=== PATIENT | male | born 1970 | race Caucasian/White ===

== ENCOUNTER → 2023-04-17 | Outpatient (CLI) | payer BC ==
--- NOTE | 2023-04-17 09:02 | MR ---
EXAMINATION TYPE: MR elbow LT wo con DATE OF EXAM: 04/17/2023 COMPARISON: Radiograph 03/14/2022 HISTORY: 53-year-old male M25.522, Left elbow pain x 4 years, history of lifting injury. TECHNIQUE: Multiplanar, multisequence images of the left elbow were obtained without IV contrast. FINDINGS: There is deficiency of tissue at the expected site of the humeral attachment of the radial collateral ligament. Prominent heterogeneity and poor delineation of soft tissue at the expected humeral attach ment of the lateral ulnar collateral ligament as well. Tear here extends into the distal aspect of the common extensor tendon origin. There is some thickening and inhomogeneous signal with tiny interstitial tears at the common flexor t endon origin. The underlying UCL appears intact. The radiocapitellar and ulnotrochlear joints appear intact. There appears to be some possible mild sp urring at the coronoid process of the ulnar trochlear joint. Small joint effusion, likely physiologic . The distal biceps tendon and triceps insertion appear intact. The median neurovascular bundle appears satisfactory. The ulnar nerve within the sulcus on there is t hickened up to 20.5 sq mm. No acute or healing fracture or abnormal marrow edema/marrow replacement. No other significant soft tissue abnormality is seen. IMPRESSION: 1. Deficiency of fibers suggesting tear of the RCL at the humeral attachment. At least partial tear a t the humeral attachment of the lateral ulnar collateral ligament as well. 2. Tear extends into the adjacent distal fibers of the common extensor tendon origin. 3. Additional tendinosis of the common flexor tendon origin plates on interstitial tears. 4. Some thickening of the ulnar nerve prior to the cubital tunnel. Correlate for any symptoms of ulna r neuropathy.
== END | disposition home or self-care (01) ==
LOC: RADMRIMAIN 06:17
PROVIDERS: ATTEND Orthopaedic Surgery Hand Surgery
DX: M67.824 Other specified disorders of tendon, left elbow (principal); S53.442A Ulnar collateral ligament sprain of left elbow, initial encounter; X58.XXXA Exposure to other specified factors, initial encounter

== ENCOUNTER → 2023-12-18 | Outpatient (CLI) | payer BC ==
--- NOTE | 2023-12-18 10:34 | CT ---
EXAMINATION TYPE: CT abdomen pelvis wo con DATE OF EXAM: 12/18/2023 COMPARISON: None INDICATION: bright and dark red stool, abdominal pain and pelvic swelling for 3 days DLP: 1018 mGycm, Automated exposure control for dose reduction was used. CONTRAST: 0 mL of Isovue 300. Study performed without Oral Contrast TECHNIQUE: Axial images were obtained from above the diaphragm to the pubic rami in the axial plane a t 5 mm thick sections. Reconstructed images are reviewed on the computer in the coronal plane. Artif act is present on the exam and reconstructed images just anterior to the spinal column. This causes s ome limitation. FINDINGS: Limited CT sections are obtained the lung bases. The lung bases are clear. CT ABDOMEN: Liver: Normal Spleen: Normal small splenule is anterior to the splenic hilum. Pancreas: Normal Adrenal glands: The adrenal glands are normal. Gallbladder: Normal Kidneys: No masses are evident. No hydronephrosis is present. There is a 2.3 cm cyst inferior pole right kidney. No renal stones are identified. Aorta: Normal Inferior vena cava: Normal. CT PELVIS: There is a calcification in the anterior right hemipelvis measuring 2.1 cm. This appears t o lie above the urinary bladder and is of uncertain etiology. Small amount of free fluid is within th e pelvis which is abnormal in a male. Minimal wall thickening of the sigmoid colon is not excluded. Significant adjacent inflammatory nye es not identified. Minimal sigmoid colitis could be considered potentially within the differential Th is study is without oral contrast limiting bowel evaluation. Appendix: Normal as visualized. Urinary bladder: Decompressed limiting evaluation. Genitourinary structures: Prostate is poorly visualized due to the artifact. Osseous structures: No suspicious lytic or sclerotic lesions. IMPRESSION: 1. Small amount of free fluid within the pelvis. There is a calcification in the right hemipelvis of uncertain etiology. Consider bladder diverticulum with calcification. This may be within the pelvis outside the urinary bladder. Consider sigmoid diverticulum within the differential. 2. Minimal colitis within the mid to distal sigmoid colon could be considered potentially within the differential. 3. Right renal cyst.
== END | disposition home or self-care (01) ==
LOC: RADCTMAIN 09:26
PROVIDERS: ATTEND Family Medicine
DX: N28.1 Cyst of kidney, acquired (principal); K52.9 Noninfective gastroenteritis and colitis, unspecified; M61.48 Other calcification of muscle, other site; R19.00 Intra-abdominal and pelvic swelling, mass and lump, unspecified site
CPT/HCPCS: 74176

== ENCOUNTER → 2024-08-12 | Outpatient (CLI) | payer BC ==
--- NOTE | 2024-08-12 12:43 | CA ---
Stress Echo Report Rajinder Dallas Age: 54 Gender: M : 1970 Exam Date: 08/12/2024 10:21 Exam Location: [facility] Ht (in): 72 Wt (lb): 230 Ordering Physician: Roland Rios MD Referring Physician: Roland Rios MD Global Logistics Manager: PREETHI, Technologist Procedure CPT: Indication: R07.9 CHEST PAIN ICD-9 Codes: Rhythm: Patient History: Chest pain, vertigo, palpitations and shortness of breath Cardiac Medications: Medications in past 24 hours: Contrast: Stress Results Protocol: Sriram Total dose(mL): Exercise Duration (min:sec): 9:[address] Depression (mm): Angina Score: Guzman Score: METS: 11.1 Resting HR: 68 Resting BP: 124 / 71 Peak HR: 152 Peak BP: 149 / 76 Max Predicted HR: 167 91 % Max Predicted HR Target HR: 142 Double Product: [id number] Stress Summary: The patient's target heart rate was achieved BP Response: Reason for Termination: Reached target heart rate or work-load Cardiac Symptoms: Chest pressure # 4 with some vertigo that resolved at rest. ECG Analysis Resting ECG: Normal sinus rhythm, normal ECG Stress ECG: No abnormal ST/T wave changes with exercise Arrhythmia: None Echo Analysis Resting Echo: Normal resting echocardiogram. Peak Echo Analysis: Normal wall thickening and motion MEASUREMENTS (Male/Female) Normal Values CONCLUSIONS Good exercise tolerance Normal electrocardiographic response to exercise with no evidence of stress-induced ischemia Chest discomfort with exercise of unclear etiology Normal stress echocardiogram with no evidence of stress induced ischemia Dr. Maria C Hodeg MD (Electronically Signed) Final Date: 12 August 2024 12:42
== END | disposition home or self-care (01) ==
LOC: RADNMMAIN 09:47
PROVIDERS: ATTEND Family Medicine
DX: R07.89 Other chest pain (principal)
CPT/HCPCS: 93351

== ENCOUNTER → 2024-09-11 | Outpatient (CLI) | payer BC ==
--- NOTE | 2024-09-11 13:18 | CT ---
EXAMINATION TYPE: CT chest wo con DATE OF EXAM: 09/11/2024 COMPARISON: None HISTORY: Chronic cough and difficulty breathing. CT DLP: 450.[address] of the chest was performed with lung and mediastinal window settings submitted. The la ck of contrast limits evaluation of the vascular, mediastinal and parenchymal structures including th e upper abdomen. LUNGS: The lungs are clear and free of infiltrate. No atelectasis. No pulmonary nodule or mass is de tected. No pleural effusion. No CT evidence of interstitial lung disease. MEDIASTINUM/KT: Thoracic aorta is of normal caliber with limited evaluation given lack of contrast . The heart is not enlarged. No evidence for mediastinal mass. No lymph nodes greater than 1cm. UPPER ABDOMEN: No significant abnormality is seen. OTHER: No significant other abnormality. IMPRESSION: 1. No discrete abnormality seen. [facility], , 09/11/2024 1:16 PM
== END | disposition home or self-care (01) ==
LOC: RADCTMAIN 07:50
PROVIDERS: ATTEND Family Medicine
DX: R07.9 Chest pain, unspecified (principal); R06.02 Shortness of breath; R06.4 Hyperventilation; R05.3 Chronic cough
CPT/HCPCS: 71250

== ENCOUNTER → 2024-11-25 | Outpatient (CLI) | payer BC ==
--- NOTE | 2024-11-25 11:20 | CT ---
EXAMINATION TYPE: CT chest w con DATE OF EXAM: 11/25/2024 COMPARISON: Chest CT September 11, 2024 HISTORY: SOB CT DLP: 466 mGycm. Automated Exposure Control for Dose Reduction was Utilized. TECHNIQUE: CT scan of the thorax is performed following with IV Contrast, patient injected with 100 mL of Isovue 300. FINDINGS: LUNGS: Mild medial left basilar linear scarring and/or atelectasis. No suspicious focal consolidation . No pleural effusion or pneumothorax seen bilaterally. MEDIASTINUM: There are no new greater than 1 cm hilar or mediastinal lymph nodes. No cardiomegaly o r effusion is seen. OTHER: Contracted gallbladder. Liver remains heterogeneously hypodense suggesting diffuse fatty infil trative hepatocellular disease. IMPRESSION: No suspicious acute pulmonary process. No significant change from most recent prior CT. [facility], , 11/25/2024 11:18 AM
== END | disposition home or self-care (01) ==
LOC: RADCTMAIN 10:33
PROVIDERS: ATTEND Internal Medicine
DX: R06.02 Shortness of breath (principal)
CPT/HCPCS: 71260; Q9967

== ENCOUNTER → 2025-01-07 | Outpatient (CLI) | payer BC | END | disposition home or self-care (01) | LOC: LABWHC1 12:25 | PROVIDERS: ATTEND Internal Medicine Critical Care Medicine | DX: R05.3 Chronic cough (principal) | CPT/HCPCS: 36415; 82785; 85008; 86003 ==

== ENCOUNTER 2025-02-16 19:32 | Outpatient (CLI) | payer BC ==
--- NOTE | 2025-02-19 21:58 | P.PCN ---
Date of Procedure: 02/16/25 Operative Findings: Polysomnography report Date of service is 02/16/2025 History 54-year-old male patient presented with symptoms of chronic fatigue and sleepiness and there was a concern for obstructive sleep apnea as the patient had significant snoring and he has been reported to have apneas during sleep. The patient has been evaluated in the [facility] [place] regarding obstructive sleep apnea and his test was positive. Note that the patient did not follow up on treatment following his sleep study. His blood work including CBC, complete metabolic profile, thyroid function test and testosterone levels have been within normal limits. No cardiovascular disease. No history of stroke. A polysomnography was accordingly ordered. Comorbidities include chronic cough, acid reflux, and the patient is a former .. Pertinent physical findings weight of 239 pounds with a BMI of 32.4 Technical description The patient was studied using a standard complex polysomnography protocol that included recording of the Lead II EKG, Central, occipital and frontal EEG, right and left outer canthus EOG, submental EMG, right and left anterior tibialis EMG, respiratory airflow by thermocouple and or pressure/flow transducer, respiratory efforts by abdominal and thoracic PVDF belts, oxygen saturation by cable oximetry. Position by observation synchronized the PSG. Equipment used: [employer]. Sleep characteristics and architecture The total recording duration was 433.5 minutes. The total sleep time was 366.5 minutes. The wake after sleep onset time was 43.5 minutes. The overall sleep efficiency was 84.5%. The latency to sleep onset was 22.5 minutes. The latency to REM sleep was 90.5 minutes. The sleep architecture was characterized by 24.8% stage I, 56.3% stage II, 2.5% stage III and 16.4% REM sleep. The total arousal index was 26.8 Respiratory analysis The patient had a total of 70 obstructive events of which 1 was obstructive apnea, 0 was mixed apnea and 69 with obstructive hypopneas. The resulting AHI was 10.8 consistent with mild obstructive sleep apnea. Disease was worse during REM sleep and AHI during REM was 29.0. Oxygenation analysis The baseline pulse ox was 94% while awake. The lowest oxygen saturation during sleep was 84%. The patient spent approximately 1.8 minutes of the sleep time below pulse ox of 89% accounted for 0.4% of the overall recording time. Periodic movement events Total of 72 periodic limb movement were counted during the sleep study with an index of 11.8. The patient had a total of 10 PLM with arousals with an index of 1.6. Arousal events There was a total of 164 arousals with an index of 26.8. Respiratory arousal index was 2.9 Cardiac summary Average heart rate was 73 with a minimum heart rate of 69. The cardiac rhythm was sinus. Assessment Loud snoring Mild obstructive sleep apnea with an AHI of 10.8, worse during REM sleep with an AHI of 29 during REM. No significant nocturnal oxygen desaturations. Chronic fatigue/sleepiness with an Jesup score of 6 Adequate sleep architecture with overexpression of stage I sleep and diminished delta wave and REM No significant periodic limb movement activity Overall respiratory arousal index was low No cardiac arrhythmias Obesity with a BMI of 32.4 Plan This patient is a case of mild obstructive sleep apnea. I am not absolutely sure that his symptoms of fatigue and sleepiness is related to MEI. However, I think it is worthwhile to give him trial of CPAP therapy for this patient and monitor his clinical response. The patient accordingly will be asked to come into the sleep center to undergo a CPAP titration and will continue monitoring his progress. Encourage weight loss. Maintain good sleep hygiene measures. Will follow.
== END 2025-02-17 05:10 | disposition home or self-care (01) ==
LOC: 3 N SLEEP 19:32
PROVIDERS: ATTEND Internal Medicine Critical Care Medicine
DX: G47.33 Obstructive sleep apnea (adult) (pediatric) (principal); E66.9 Obesity, unspecified; R53.82 Chronic fatigue, unspecified; Z68.32 Body mass index [BMI] 32.0-32.9, adult
CPT/HCPCS: 95810

== ENCOUNTER → 2025-02-17 | Outpatient (CLI) | payer BC ==
--- NOTE | 2025-02-17 11:05 | US ---
EXAMINATION TYPE: US thyroid st tissue head/neck DATE OF EXAM: 02/17/2025 COMPARISON: NONE CLINICAL INDICATION: Male, 54 years old with history of R22.1 SWELLING MASS LUMP, NECK; Posterior rig ht neck lump x years- increasing in size and becoming painful recently. TECHNIQUE: Multiple grayscale and color Doppler ultrasound images of the right posterior neck at pat ient's region of concern. FINDINGS/IMPRESSION: Heterogenous lobulated avascular area seen at patients AOC = 4.1 x 1.3 x 3.2 cm . There are regions of striations identified. This is nonspecific but could represent a lipoma versus other etiologies. This can be further evaluated with CT neck with IV contrast as clinically indicate d. Consider tissue sampling. [facility], , 02/17/2025 11:02 AM
== END | disposition home or self-care (01) ==
LOC: RADUSWWP 10:42
PROVIDERS: ATTEND Family Medicine
DX: R22.1 Localized swelling, mass and lump, neck (principal)
CPT/HCPCS: 76536

== ENCOUNTER → 2025-02-24 | Outpatient (CLI) | payer BC ==
--- NOTE | 2025-02-24 09:28 | CT ---
EXAMINATION TYPE: CT soft tissue neck w con CT DLP: 703.40 mGycm, Automated exposure control for dose reduction was used. DATE OF EXAM: 02/24/2025 9:03 AM COMPARISON: Thyroid ultrasound 02/17/2025. CLINICAL INDICATION:Male, 54 years old with history of I25.10 CORONARY ARTERY ARTERIOSCLEROSIS; PHH, RT neck mass pt states is getting larger and hurting. Marked by BB TECHNIQUE: Standard enhanced CT of the neck following intravenous administration of 100 cc of Isovue 300. Axial sections with coronal and sagittal reformats were obtained. FINDINGS: Brain: Visualized portions are grossly unremarkable. Orbits: Unremarkable Sinuses: Grossly unremarkable. Suprahyoid Neck: The oropharynx, oral cavity, parapharyngeal and retropharyngeal spaces are clear and symmetric. Left palatine tonsilloliths. The nasopharynx is unremarkable. Infrahyoid Neck: The larynx, hypopharynx, and supraglottic area are clear and symmetric. Parotid Glands: Unremarkable. Submandibular Glands: Unremarkable. Musculoskeletal: No acute osseous pathology. Lymph nodes: No pathologically enlarged lymph nodes identified.. Vascular structures: Visualized major arteries are patent without evidence of aneurysm. Thoracic Inlet/airway: Airway is patent. The lung apices are clear. Soft tissues/Thyroid: Left lower lobe 7 mm hypodense nodule. There is an ill-defined focal region of prominent fat in the right posterior neck at site of palpable marker (series 3, image 66). Grossly me asures 2.8 x 1.5 cm. No soft tissue component identified. Other: none. IMPRESSION: Focal region of fat prominence with ill-defined borders in the right posterior neck at site of palpab le marker. This corresponds to prior ultrasound finding and is most consistent with a lipoma. [facility], , 02/24/2025 9:26 AM
== END | disposition home or self-care (01) ==
LOC: RADCTMAIN 08:03
PROVIDERS: ATTEND Family Medicine
DX: R22.1 Localized swelling, mass and lump, neck (principal)
CPT/HCPCS: 70491; Q9967